=== PATIENT | male | born 1985 | race American Indian/Alaskan Native ===

== ENCOUNTER 2016-10-19 02:50 | Emergency (ER) | payer OTHER ==
[2016-10-19] MEDS ORDERED: BOOSTRIX IM ONE (08:24)
[2016-10-19] MEDS ORDERED: XYLOCAINE 1% 20 mL INFILTRATI ONE (08:24)
--- NOTE | 2016-10-19 08:26 | Emergency Department Report ---
HPI - General Chief Complaint: Puncture Wound Time Seen by Provider: 10/19/16 08:15 - HPI HPI: This is a 31-year-old -[place] male presents to the emergency department with 2 lacerations and/or puncture wounds to the right upper arm that occurred when the patient says that he accidentally "fell on my tools" a few hours ago this morning. The patient denies any obstruction range of motion. He did not take anything for symptoms prior to presentation. He is unsure of his last tetanus vaccination. He does not have a primary care doctor. He denies any past medical history. He is right-hand dominant. ED Past Medical Hx - Medications Home Medications: Home Medications Medication Instructions Recorded Confirmed Last Taken Type Sulfamethoxazole/Trimethoprim 1 each PO BID #10 tablet 10/19/16 Unknown Rx [Bactrim DS TAB] ED Review of Systems ROS: Stated complaint: R ARM LAC Other details as noted in HPI Comment: All other systems reviewed and negative Constitutional: denies: chills, fever Eyes: denies: eye pain, eye discharge, vision change ENT: denies: ear pain, throat pain Respiratory: denies: cough, shortness of breath, wheezing Cardiovascular: denies: chest pain, palpitations Gastrointestinal: denies: abdominal pain, nausea, diarrhea Genitourinary: denies: urgency, dysuria Musculoskeletal: arthralgia, myalgia Skin: other (laceration). denies: rash Neurological: denies: headache, weakness, paresthesias Physical Exam - Physical Exam Vital Signs: Vital Signs 10/19/16 03:02 Temperature 98.5 F Pulse Rate 84 Respiratory 18 Rate Blood Pressure 123/77 O2 Sat by Pulse 97 Oximetry Physical Exam: GENERAL: The patient is well-developed well-nourished. HEENT: Normocephalic. Atraumatic. Extraocular motions are intact. Patient has moist mucous membranes. Pupils equal reactive to light bilaterally. NECK: Supple. Trachea is midline. CHEST/LUNGS: Clear to auscultation. There is no respiratory distress noted. HEART/CARDIOVASCULAR: Regular. There is no tachycardia. There is no gallop rub or murmur. ABDOMEN: Abdomen is soft, nontender. Patient has normal bowel sounds. There is no abdominal distention. SKIN: There is a 2 cm transverse laceration to the right mid upper arm on the lateral side. It goes down into the subcutaneous tissue. There is no active bleeding, weeping or any purulent drainage. There is a smaller 0.5 cm laceration that is also linear and transverse to the proximal right upper arm. This laceration also does not appear to be infected and is not currently having any bleeding. NEURO: The patient is awake, alert, and oriented. The patient is cooperative. The patient has no focal neurologic deficits. The patient has normal speech. MUSCULOSKELETAL: There is no tenderness or deformity. There is no limitation range of motion. There is no evidence of acute injury. Muscle strength 5 out of 5 for bilateral upper extremities. Cap refill less than 2 seconds. Radial pulse +2 over 4 bilaterally. ED Course Vital Signs 10/19/16 03:02 Temperature 98.5 F Pulse Rate 84 Respiratory 18 Rate Blood Pressure 123/77 O2 Sat by Pulse 97 Oximetry - Laceration /Wound Repair Right Arm Wound Location: upper extremity (right upper arm) Wound Length (cm): 2 Wound's Depth, Shape: superficial, linear Wound Explored: clean Irrigated w/ Saline (ccs): 50 Anesthesia: 1% Lidocaine Volume Anesthetic (ccs): 3 Wound Repaired With: sutures Suture Size/Type: 5:0, proline Number of Sutures: 6 Sterile Dressing Applied?: Yes Right Shoulder Wound Location: upper extremity (right upper arm) Wound Length (cm): 1 Wound's Depth, Shape: superficial, linear Wound Explored: clean Anesthesia: 1% Lidocaine Volume Anesthetic (ccs): 1 Wound Repaired With: sutures Suture Size/Type: 5:0, proline Number of Sutures: 1 Sterile Dressing Applied?: Yes ED Medical Decision Making - Radiology Data Radiology results: image reviewed interpreted by me: X-ray of the right humerus does not show any fracture, dislocation or any foreign body. 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 X-ray was done that does not show any fracture or any foreign body. The lacerations were closed with sutures. Patient will be placed on antibiotics. Tetanus vaccination is up dated. We discussed monitoring for infection. He will follow-up with primary care and return to the ER with any worsening of symptoms or any acute distress. - Differential Diagnosis fracture, dislocation abrasion, laceration Critical Care Time: No Critical care attestation.: If time is entered above; I have spent that time in minutes in the direct care of this critically ill patient, excluding procedure time. ED Disposition Clinical Impression: Laceration of right upper arm Qualifiers: Encounter type: initial encounter Qualified Code(s): S41.111A - Laceration without foreign body of right upper arm, initial encounter Disposition: TO HOME OR SELFCARE Is pt being admited?: No Condition: Stable Instructions: Suture Care (ED), Laceration (ED) Additional Instructions: The sutures need to be removed in 1 week. This can be done at an urgent care, primary care physician or a emergency department. He should be seen sooner with any surrounding redness that develops, significant swelling, discharge or pus or any signs or symptoms of infection. You are also encouraged to return with any worsening of your symptoms or any acute distress. Clean the area with soap and water and then keep it dry. Take the antibiotics as prescribed. Prescriptions: Sulfamethoxazole/Trimethoprim [Bactrim DS TAB] 1 each PO BID #10 tablet Referrals: PRIMARY CARE [Primary Care Provider] - 3-5 Days [facility] [Outside] - 3-5 Days Forms: Work/School Release Form(ED) Time of Disposition: 09:11
[2016-10-19 08:29] VITALS: BP 105/66
--- NOTE | 2016-10-19 09:04 | XRay Report ---
RIGHT HUMERUS RADIOGRAPHS INDICATION: Puncture wound. Evaluate for foreign body. COMPARISON: None similar at this institution. FINDINGS: AP and lateral right humerus radiographs demonstrate intact bones and included joints. No radiopaque foreign body, though soft tissue air/laceration along the mid arm soft tissues laterally incidentally noted. CONCLUSION: Right arm soft tissue injury/laceration with intact right humerus, as described. Thank you for the opportunity to participate in this patient's care.
== END 2016-10-19 09:24 | disposition home or self-care (01) ==
LOC: ED 02:50
DX: S41.111A Laceration without foreign body of right upper arm, initial encounter (principal); X58.XXXA Exposure to other specified factors, initial encounter; Y93.89 Activity, other specified; Y92.89 Other specified places as the place of occurrence of the external cause; Y99.8 Other external cause status
CPT/HCPCS: 90471; 90715

== ENCOUNTER 2018-07-02 15:14 | Emergency (ER) | payer OTHER ==
[2018-07-02 15:44] VITALS: BP 116/75
--- NOTE | 2018-07-02 15:57 | Emergency Department Report ---
- General Chief Complaint: Upper Respiratory Infection Stated Complaint: CHEST COLD Time Seen by Provider: 07/02/18 15:51 Source: patient Mode of arrival: Ambulatory Limitations: No Limitations - History of Present Illness MD Complaint: cough, rhinorrhea, nasal congestion -: Gradual, week(s) Consistency: constant Improves With: nothing Worsens With: nothing Associated Symptoms: rhinorrhea, nasal congestion, cough. denies: myalgias, diaphoresis, shortness of breath, confusion, weight loss Treatments Prior to Arrival: other (symptoms improving and needs a work note) - Related Data Previous Rx's Medication Instructions Recorded Last Taken Type Sulfamethoxazole/Trimethoprim 1 each PO BID #10 tablet 10/19/16 Unknown Rx [Bactrim DS TAB] Allergies Allergy/AdvReac Type Severity Reaction Status Date / Time No Known Allergies Allergy Verified 07/02/18 15:14 ED Review of Systems ROS: Stated complaint: CHEST COLD Other details as noted in HPI Constitutional: denies: chills, fever Eyes: denies: eye pain, eye discharge, vision change ENT: denies: ear pain, throat pain Respiratory: denies: cough, shortness of breath, wheezing Cardiovascular: denies: chest pain, palpitations Endocrine: no symptoms reported Gastrointestinal: denies: abdominal pain, nausea, diarrhea Genitourinary: denies: urgency, dysuria Musculoskeletal: denies: back pain, joint swelling, arthralgia Skin: denies: rash, lesions Neurological: denies: headache, weakness, paresthesias Psychiatric: denies: anxiety, depression Hematological/Lymphatic: denies: easy bleeding, easy bruising ED Past Medical Hx - Past Medical History Previous Medical History?: No - Surgical History Past Surgical History?: No - Social History Smoking Status: Never Smoker Substance Use Type: None - Medications Home Medications: Home Medications Medication Instructions Recorded Confirmed Last Taken Type Sulfamethoxazole/Trimethoprim 1 each PO BID #10 tablet 10/19/16 Unknown Rx [Bactrim DS TAB] ED Physical Exam - General Limitations: No Limitations General appearance: alert, in no apparent distress - Head Head exam: Present: atraumatic, normocephalic - Eye Eye exam: Present: normal appearance, PERRL Pupils: Present: normal accommodation - ENT ENT exam: Present: normal exam, mucous membranes moist - Neck Neck exam: Present: normal inspection - Respiratory Respiratory exam: Present: normal lung sounds bilaterally. Absent: respiratory distress, wheezes, rales - Cardiovascular Cardiovascular Exam: Present: regular rate, normal rhythm. Absent: systolic murmur, diastolic murmur, rubs, gallop - GI/Abdominal GI/Abdominal exam: Present: soft, normal bowel sounds - Rectal Rectal exam: Present: deferred - Extremities Exam Extremities exam: Present: normal inspection, full ROM. Absent: normal capillary refill - Back Exam Back exam: Present: normal inspection. Absent: CVA tenderness (R), CVA tenderness (L), paraspinal tenderness, vertebral tenderness - Neurological Exam Neurological exam: Present: alert, oriented X3, CN II-XII intact, normal gait - Psychiatric Psychiatric exam: Present: normal affect, normal mood - Skin Skin exam: Present: warm, dry, intact, normal color. Absent: rash ED Course Vital Signs 07/02/18 15:42 Temperature 97.6 F Pulse Rate 78 Respiratory 16 Rate Blood Pressure 116/75 [Left] O2 Sat by Pulse 96 Oximetry Critical care attestation.: If time is entered above; I have spent that time in minutes in the direct care of this critically ill patient, excluding procedure time. ED Disposition Clinical Impression: URI (upper respiratory infection) Disposition: DC-01 TO HOME OR SELFCARE Is pt being admited?: No Does the pt Need Aspirin: No Condition: Stable Instructions: Upper Respiratory Infection (ED) Referrals: ALL CHANG MD [Primary Care Provider] - 3-5 Days Forms: Work/School Release Form(ED)
== END 2018-07-02 16:30 | disposition home or self-care (01) ==
LOC: ED 15:14
DX: J06.9 Acute upper respiratory infection, unspecified (principal)
CPT/HCPCS: 99282

== ENCOUNTER 2018-12-07 15:03 | Emergency (ER) | payer OTHER ==
[2018-12-07 15:55] VITALS: BP 122/77
--- NOTE | 2018-12-07 16:14 | Emergency Department Report ---
Chief Complaint: Fever Stated Complaint: COLD/FEVER Time Seen by Provider: 12/07/18 16:08 - HPI History of Present Illness: 33 y o male presents to Ed cc of recent bronchitis x 3 days pt denies any f/c/n/v/d Pt states he has not been able to go to work due ti intermitent coughing he reports felling better now but needed an evaluation for work - ROS Review of Systems: As noted in HPI - Exam Vital Signs: Vital Signs 12/07/18 15:53 Temperature 98.1 F Pulse Rate 86 Respiratory 18 Rate Blood Pressure 122/77 O2 Sat by Pulse 100 Oximetry Physical Exam: Gen: AAO x 3 LUNGS: CTAB, no rALES,no wheezing HEART: RRR MSE screening note: Focused history and physical exam performed. Due to findings the following was ordered: ED Disposition for MSE Clinical Impression: Bronchitis Disposition: DC-01 TO HOME OR SELFCARE Is pt being admited?: No Does the pt Need Aspirin: No Condition: Stable Instructions: Chronic Bronchitis (ED) Additional Instructions: follow up with pcp Your symptoms will reslove on its own If symptoms worsen please return to ED Prescriptions: ALBUTEROL Inhaler (OR & NICU) [ProAir HFA Inhaler] 2 puff IH QID PRN #1 inhalation PRN Reason: Shortness Of Breath Referrals: [facility] [Outside] - 3-5 Days [facility] [Outside] - 3-5 Days Forms: Work/School Release Form(ED) Time of Disposition: 16:22
== END 2018-12-07 16:53 | disposition home or self-care (01) ==
LOC: ED 15:03
DX: J40 Bronchitis, not specified as acute or chronic (principal)

== ENCOUNTER 2018-12-07 20:17 | Emergency (ER) | payer OTHER ==
[2018-12-08 01:27] VITALS: BP 126/69
== END 2018-12-07 21:50 | disposition left against medical advice (07) ==
LOC: ED 20:17
DX: R50.9 Fever, unspecified (principal); Z53.21 Procedure and treatment not carried out due to patient leaving prior to being seen by health care provider